=== PATIENT | female | born 1955 | race Caucasian/White ===

== ENCOUNTER 2024-06-29 10:55 | Emergency (ER) | payer MEDICARE ==
[~2024-06-29] VITALS: Ht 162.6 cm; Wt 82.6 kg
[2024-06-29] MEDS ORDERED: METH-1164 PO (12:22)
[2024-06-29] MEDS ORDERED: MELO15TA28 PO (12:22)
[2024-06-29] MEDS ORDERED: ACET500T15 PO (12:22)
[2024-06-29] MEDS ORDERED: HYDR-3713 PO (14:49)
[2024-06-29] MEDS ORDERED: LIDO5DIS41 TOP (14:49)
[2024-06-29] MEDS: LIDOCAINE 5% (LIDODERM) PATCH TD ONE (14:53)
[2024-06-29 15:07] VITALS: BP 144/83; TEMP 98.9; O2SAT 97
== END 2024-06-29 15:12 | disposition home or self-care (01) ==
LOC: M ED 10:55
DX: M15.9 Polyosteoarthritis, unspecified (principal)

== ENCOUNTER → 2024-11-10 | Outpatient (REF) | payer BC, MEDICARE ==
[~2024-11-10] MED LIST: ACET500T15 PO; HYDR-3713 PO; LIDO5DIS41 TOP; MELO15TA28 PO; METH-1164 PO
[2024-11-10 17:30] LABS: BASO # 0.1 10^3/uL (0.0-0.2); BASO % 0.6 % (0.0-1.0); EOS # 0.5 10^3/uL (0.0-0.5); EOS % 6.5 % (0.0-3.0); HEMATOCRIT 40.8 % (36.0-47.0); HEMOGLOBIN 13.5 g/dl (12.0-15.5); LYMPH # 1.6 10^3/uL (1.5-5.0); LYMPH % 19.9 % (24.0-44.0); MEAN CORPUSCULAR HGB CONC 33.1 g/dl (32.0-36.5); MEAN CORPUSCULAR VOLUME 87.6 fl (80.0-96.0); MONO # 0.5 10^3/uL (0.0-0.8); MONO % 5.9 % (2.0-8.0); NEUTROPHILS # 5.4 10^3/uL (1.5-8.5); NEUTROPHILS % 66.7 % (36.0-66.0); PLATELET COUNT, AUTOMATED 183 10^3/uL (150-450); RED BLOOD COUNT 4.66 10^6/uL (4.00-5.40); WHITE BLOOD COUNT 8.1 10^3/uL (4.0-10.0)
[2024-11-10 17:59] LABS: FREE T4 0.86 NG/DL (0.89-1.76); THYROID STIMULATING HORMONE 0.444 uIU/ML (0.55-4.78)
[2024-11-10 18:00] LABS: ALKALINE PHOSPHATASE 64 U/L (35-104); ALT/SGPT 18 U/L (7.0-40); AST/SGOT 17 U/L (<34); BILIRUBIN,TOTAL 0.6 MG/DL (0.3-1.2); BLOOD UREA NITROGEN 22 MG/DL (9-23); CALCIUM LEVEL 9.9 MG/DL (8.3-10.6); CARBON DIOXIDE LEVEL 25 MMOL/L (20-31); CHLORIDE LEVEL 108 MMOL/L (98-107); CHOLESTEROL LEVEL 240 MG/DL (<200); CHOLESTEROL RISK RATIO 3.38 (<5); GLOMERULAR FILTRATION RATE > 60.0 (>45); GLUCOSE, FASTING 97 MG/DL (74-106); LDL CHOLESTEROL 146.8 MG/DL (<100); POTASSIUM SERUM 4.2 MMOL/L (3.5-5.1); SODIUM LEVEL 142 MMOL/L (136-145); TOTAL PROTEIN 7.1 G/DL (5.7-8.2); TRIGLYCERIDES LEVEL 111 MG/DL (<150)
[2024-11-10 19:15] LABS: HEMOGLOBIN A1c 5.1 % (4.0-6.0)
== END ==
LOC: M LAB REF 16:32
PROVIDERS: ATTEND Nurse Practitioner Family
DX: E03.9 Hypothyroidism, unspecified (principal); E66.3 Overweight; R53.83 Other fatigue; Z79.899 Other long term (current) drug therapy; Z11.3 Encounter for screening for infections with a predominantly sexual mode of transmission; Z72.89 Other problems related to lifestyle